=== PATIENT | female | born 1985 | race American Indian/Alaskan Native ===

== ENCOUNTER 2020-04-27 16:34 | Emergency (ER) | payer OTHER ==
[~2020-04-27] VITALS: Ht 165.1 cm; Wt 68.0 kg
[2020-04-27 16:44] VITALS: Ht 165.1 cm; Wt 68.0 kg
[2020-04-27 18:39] VITALS: BP 190/82
== END 2020-04-27 18:39 | disposition home or self-care (01) ==
LOC: ED 16:34
DX: S00.12XA Contusion of left eyelid and periocular area, initial encounter (principal); I10 Essential (primary) hypertension; Y04.8XXA Assault by other bodily force, initial encounter; Y93.89 Activity, other specified; Y92.89 Other specified places as the place of occurrence of the external cause; Y99.8 Other external cause status